=== PATIENT | male | born 1970 | race Two or more races ===

== ENCOUNTER 2023-08-20 11:42 | Emergency (ER) | payer OTHER ==
[~2023-08-20] VITALS: Ht 152.4 cm; Wt 77.1 kg
[~2023-08-20 11:42] MED LIST: CIPRO500 MG
[2023-08-20] MEDS ORDERED: DIPHENHYDRAMINE HCL 50 MG/ML VIAL 1ML IM STA (11:59)
[2023-08-20 12:20] LABS: HEMATOCRIT 39.9 % (39.0-48.0); HEMOGLOBIN 13.7 g/dL (13-16.00); MEAN CELL VOLUME 84.7 fL (80.0-100.00); MEAN CORPUSCULAR HGB CONC 34.3 g/dl (32.0-36.0); PLATELET COUNT 223 K/uL (150-450); RED BLOOD COUNT 4.71 M/uL (4.00-6.00); RED CELL DISTRIBUTION WIDTH 13.2 % (11.5-14.5)
[2023-08-20 12:44] LABS: PH,URINE 6.5 (5.0-8.0); URINE APPEARANCE Clear; URINE BILIRRUBIN Negative (NEGATIVE); URINE BLOOD Negative; URINE COLOR Yellow; URINE EPITHELIAL CELLS 2.6 uL (0.0-38.8); URINE GLUCOSE Negative (NEGATIVE); URINE LEUKOCYTE Negative; URINE NITRATE Negative; URINE PROTEIN Negative (NEGATIVE); URINE RBC 6.4 uL (0.0-20.8); URINE WBC 4.4 uL (0.0-23.2)
[2023-08-20 12:46] LABS: CALCIUM 8.9 mg/dL (8.5-10.1); CREATININE SERUM 1.08 mg/dL (0.70-1.30); GFR 71.8; POTASSIUM 3.96 mEq/L (3.5-5.1)
[2023-08-20 12:52] LABS: URINE BACTERIA 3.7 uL (0.0-1933)
[2023-08-20] MEDS ORDERED: DEXAMETHASONE SODIUM PHOSPHATE 4 MG/ML VIAL IM STA (13:26)
== END 2023-08-20 13:48 | disposition home or self-care (01) ==
LOC: ER 11:43
PROVIDERS: General Practice
DX: R30.0 Dysuria (principal); T78.40XA Allergy, unspecified, initial encounter